=== PATIENT | female | born 2000 | race Caucasian/White ===

== ENCOUNTER 2025-07-30 11:12 | Emergency (ER) | payer OTHER, SELFPAY ==
[2025-07-30 11:21] VITALS: BP 124/75; PULSE 85; TEMP 36.7; O2SAT 100; BMI 26.8
--- OUTSIDE RECORDS SUMMARY | 2025-07-30 12:28 | XMS_ITS | Clinical Summary ---
Author Organization [facility] Healthcare Address [address] [place] [address] Care Team Providers Care Pattern Changer Name Role Phone Unallocated, Kashif Provider MD Primary Care Provi adriana Allergies No known active allergies Medications Levonorgestrel (Mirena, 52 MG,) 20 MCG/DAY intrauterine device by Intrauterine route. Active ferrous sulfate 325 (65 Fe) MG tablet Take 325 mg by mouth in the morning. Take with meals. Active cyanocobalamin (Vitamin B-12) 100 MCG tablet Take 100 mcg by mouth Daily Active Probiotic Product (PROBIOTIC BLEND PO) Take by mouth Active Encounters Date Type Department Care Team Description 07/29/2025 Patient Self-Triage KASHIF [facility] [address] [facility] [address] [place] [address] Gosia Abdullahi, Physician, from Last 3 Months Family History Medical History Relation Name Comments Prostate cancer Father Ovarian cancer Maternal Grandmother Grammy Relation Name Status Comments Brother 3 Daughter Alive Father Alive Maternal Grandmother Grammy Mother Alive Son Alive 3 Social History Tobacco Use Types Packs/Day Years Used Date Smoking Tobacco: Never Smokeless Tobacco: Never Tobacco Cessation:Counseling Given: Not Answered Alcohol Use Standard Drinks/Week Comments Never 0 (1 standard drink = 0.6 oz pur e alcohol) Caffeine intake: none PHQ-2 Answer Date Recorded Patient Health Questionnaire-2 Score 0 12/06/2023 Education Answer Date Recorded What is the highest level of school you have completed or the highest degree you have received? Some college, no degree 12/03/2023 Comments No Sex and Gender Information Value Date Recorded Sex Assigned at Female 04/18/2023 10:20 AM EDT Legal Sex Female 10:05 PM EDT Gender Identity Female 04/18/2023 10:20 AM EDT Sexual Orientation Straight 04/18/2023 10 :20 AM EDT Last Filed Vital Signs Vital Sign Reading Time Taken Comments Blood Pressure 110/70 01/01/2025 10:13 AM EST Pulse - - Temperature - - Respiratory Rate - - Oxygen Saturation - - Inhaled Oxygen Concentration - - Weight 61.7 kg (136 lb) 01/01/2025 10:13 AM EST Height 154.9 cm (5' 1 ) 06/22/2023 4:20 PM EDT Body Mass Index 25.7 06/22/2023 4:20 PM EDT Plan of Treatment Health Maintenance Due Date Last Done Comments Influenza Vaccine (#1) 2025 Insurance [facility] Care Teams Pattern Changer Relationship Specialty Start Date End Date Unallocated, [place] MD Samson [address] [place] [address] PCP - General 04/19/23
--- OUTSIDE RECORDS SUMMARY | 2025-07-30 12:28 | XMS_ITS | Encounter Summary ---
Author Organization [facility] Address [address] [place] [address] Care Team Providers Care Property Disposal Officer Name Role Phone Unallocated, Kashif Provider Primary Care [facility] Encounter Details Date Type Department Care Team (Late st Contact Info) Description 07/29/2025 Patient Self-Triage KASHIF Garcia [address] [facility] [address] [place] [address] Gosia Abdullahi, Physician, [address] [place] [id number] Social History Tobacco Use Types Packs/Day Years Used Date Smoking Tobacco: Never Smokeless Tobacco: Never Alcohol Use Standard Drinks/Week Comments Never 0 [...] Orientation Straight 04/18/2023 10 :20 AM EDT documented as of this encounter Plan of Treatment Not on file documented as of this encounter Visit Diagnoses Not on filedocumented in this encounter Care Teams Property Disposal Officer Relationship Specialty Start Date End Date Unallocated, Emperatrizs Provider, [address] [place] [address] PCP - General 04/19/23 documented as of this encounter
--- NOTE | 2025-07-30 16:46 | ED.GENADUL1 ---
HPI HPI - General Adult General Chief complaint: Back Pain/Injury Stated complaint: BACK PAIN Time Seen by Provider: 07/30/25 11:28 Source: patient Mode of arrival: walk-in Limitations: no limitations History of Present Illness HPI narrative: Patient is a 24-year-old female presenting to the emergency department for evaluation of right lower back pain. Patient states that 1 week ago she noticed pain in the right lower buttock radiating down the back of her right leg. She states this may be related to a long car ride that she was in a week ago. She states that laying in certain positions makes the pain worse. She denies any loss of bladder/bowel function. She denies any weakness in the lower extremities. No numbness/tingling lower extremities. She denies history of injuries. No history of IV drug use or fevers. She denies any injuries or falls or trauma to the area. She denies leg swelling. She is not on oral contraceptive pills. She denies chest pain or shortness of breath. No recent surgical procedures. She denies being , she does have an IUD. Related Data Previous Rx's ?Medication ?Instructions ?Recorded lidocaine 4 % topical patch (Lido 1 patch topical Q24H PRN pain #5 ea 07/30/25 Garrick) methocarbamol 500 mg tablet 500 mg PO Q8H PRN pain #20 tabs 07/30/25 Allergies Allergy/AdvReac Type Severity Reaction Status Date / Time No Known Drug Allergies Allergy Verified 07/30/25 11:21 Opioid HPI Opioid Management Most Recent Opioid Data: Last Pain Scale 6 Today, 11:27 Review of Systems ROS Status of ROS 10 or more systems reviewed and unremarkable except as noted in history and below PFSH PFSH Social History Little interest or pleasure in doing things: not at all Feeling down, depressed, or hopeless: not at all Exam Narrative Exam Narrative: CONSTITUTIONAL: Well-appearing, answering questions and following commands appropriately SKIN: Was warm and dry. EYES: Sclerae white. EARS, NOSE, THROAT: Moist oral mucosa. RESPIRATORY: Nonlabored respirations. CARDIOVASCULAR: Normal rate and regular rhythm. There is no S3, S4, murmur, rub. GASTROINTESTINAL: Abdomen is nondistended. MUSCULOSKELETAL: The patient has reproducible tenderness to palpation throughout the paraspinal muscles of the right lower back. No midline L-spine tenderness. Positive straight leg raise test on the right. No peripheral edema. No calf tenderness. Full range of motion of the bilateral lower extremities. Ambulates with a steady gait. NEUROLOGIC: Patient is awake and alert. 5/5 strength in the bilateral lower extremities. Sensation intact to light touch in the bilateral lower extremities. Constitutional Vital Signs, click to edit/add: Last Vital Signs Temp 98.1 F 07/30/25 11:21 Pulse 85 07/30/25 11:21 Resp 16 07/30/25 11:21 BP 124/75 07/30/25 11:21 Pulse Ox 100 07/30/25 11:21 O2 Del Method Room Air 07/30/25 11:21 Course Vital Signs Vital signs: Vital Signs Temperature 98.1 F 07/30/25 11:21 Pulse Rate 85 07/30/25 11:21 Respiratory Rate 16 07/30/25 11:21 Blood Pressure 124/75 07/30/25 11:21 Pulse Oximetry 100 07/30/25 11:21 Oxygen Delivery Method Room Air 07/30/25 11:21 Temperature 98.1 F 07/30/25 11:21 Pulse Rate 85 07/30/25 11:21 Respiratory Rate 16 07/30/25 11:21 Blood Pressure 124/75 07/30/25 11:21 Pulse Oximetry 100 07/30/25 11:21 Oxygen Delivery Method Room Air 07/30/25 11:21 Medical Decision Making MDM Narrative Medical decision making narrative: Patient is a previously healthy 24-year-old female presenting to the emergency department for a 1 week history of right lower back pain radiating down her right leg. Vital signs on arrival are within normal limits. She is afebrile and hemodynamically stable. Examination as noted above. My clinical impression is that the patient's symptoms are secondary to lumbar radiculopathy/sciatica, possibly musculoskeletal pain. No findings that would be suggestive of cauda equina syndrome. No history of IV drug use, fevers, midline vertebral tenderness to suggest spinal epidural abscess. No recent injuries to suggest fracture or dislocations. No history of cancer to suggest metastatic disease. Patient declined analgesics here in the ED. I do believe the patient is stable for discharge. They were instructed to follow up with their PCP should her symptoms persist. Return precautions were given including any new or worsening symptoms, including numbness/tingling/weakness in lower extremities or loss of bladder and bowel function. They were given a prescription for Robaxin and lidocaine patches, she does have Motrin at home. Patient understands and agrees to the plan. FINAL IMPRESSION: #Acute right-sided sciatica DISPOSITION: Discharged home CONDITION: Good Discharge Plan Discharge Chief Complaint: Back Pain/Injury Clinical Impression: Sciatica Patient Disposition: Home, Self-Care Time of Disposition Decision: 11:55 Condition: Good Mode of Transportation: Private Vehicle Prescriptions / Home Meds: New methocarbamol 500 mg tablet 500 mg PO Q8H PRN (Reason: pain) Qty: 20 0RF lidocaine [Lido Garrick] 4 % adhesive patch,medicated 1 patch topical Q24H PRN (Reason: pain) Qty: 5 0RF Rx Instructions: may leave on for up to 12 hrs Print Language: Japanese Instructions: Sciatica (ED) Discharge Date/Time: 07/30/25 12:16
== END 2025-07-30 12:16 | disposition home or self-care (01) ==
PROVIDERS: Emergency Provider Student in an Organized Health Care Education/Training Program
DX: M54.31 Sciatica, right side (principal)
CPT/HCPCS: 99283